=== PATIENT | male | born 1980 | race Caucasian/White ===

== ENCOUNTER 2019-10-02 15:38 | Emergency (ER) | payer OTHER ==
[~2019-10-02] VITALS: Ht 162.6 cm; Wt 108.4 kg
[2019-10-02] MEDS ORDERED: HUMALOG100 UNIT/2 (15:56)
[2019-10-02] MEDS ORDERED: MUCINEX100 MG (15:56)
== END 2019-10-02 20:23 | disposition home or self-care (01) ==
LOC: ER 15:38
DX: R06.02 Shortness of breath (principal)